=== PATIENT | male | born 1965 | race Caucasian/White ===

== ENCOUNTER 2016-09-03 14:39 | Emergency (ER) | payer MEDICAID ==
[~2016-09-03] VITALS: Ht 188 cm; Wt 92.4 kg
[~2016-09-03 14:39] MED LIST: CIPR500T87 PO; DOCU100C8 PO; METR500T PO; NEOM500T PO; ONDA4TAB10 PO; OXYC-302 PO; OXYC1TAB8 PO; TRAM50TA2 PO
[2016-09-03 15:44] LABS: BLOOD UREA NITROGEN 13 mg/dL (7-18)
[2016-09-03 15:55] LABS: IS PT STATUS REG ER OR PRE ER? YES
[2016-09-03 16:00] VITALS: BP 148/96
== END 2016-09-03 17:56 | disposition home or self-care (01) ==
LOC: ED 17:02
DX: L03.116 Cellulitis of left lower limb (principal); F17.210 Nicotine dependence, cigarettes, uncomplicated
CPT/HCPCS: 36415; 71010; 80048; 82040; 84484; 85025; 85610; 85730; 93005

== ENCOUNTER 2016-10-04 10:07 | Emergency (ER) | payer MEDICAID ==
[~2016-10-04] VITALS: Ht 188 cm; Wt 91.7 kg
[2016-10-04 10:11] VITALS: BP 141/88
== END 2016-10-04 10:38 | disposition left against medical advice (07) ==
LOC: ED 10:32
DX: M79.672 Pain in left foot (principal); Z53.21 Procedure and treatment not carried out due to patient leaving prior to being seen by health care provider

== ENCOUNTER 2016-12-23 02:46 | Emergency (ER) | payer MEDICAID ==
[~2016-12-23] VITALS: Ht 188 cm; Wt 88.6 kg
[~2016-12-23 02:46] MED LIST changes: +DOCU100C33 PO; -DOCU100C8 PO
[2016-12-23] MEDS ORDERED: HYDROmorphone 1 MG/ML, 1ML IV ONE (04:00)
[2016-12-23] MEDS ORDERED: ONDANSETRON 2MG/ML, 2ML IVPush ONE (04:00)
[2016-12-23] MEDS ORDERED: SODIUM CHLORIDE FLUSH 10ML SYR IVF ONE (04:00)
[2016-12-23] MEDS ORDERED: SODIUM CHLORIDE 0.9% 1,000ML IVBOLUS ONE (04:00)
[2016-12-23] MEDS ORDERED: HYDROmorphone 1 MG/ML, 1ML ONE (04:08)
[2016-12-23] MEDS ORDERED: ONDANSETRON 2MG/ML, 2ML ONE (04:09)
[2016-12-23 04:22] LABS: HEMATOCRIT 48.3 % (39.2-51.8); HEMOGLOBIN 16.2 g/dL (13.7-18.0); WHITE BLOOD COUNT 16.2 x10^3/uL (3.4-10)
[2016-12-23 04:30] LABS: BLOOD UREA NITROGEN 17 mg/dL (7-18)
[2016-12-23 04:33] LABS: ASPARTATE AMINO TRANSFERASE 37 U/L (15-37)
[2016-12-23] MEDS ORDERED: OMNIPAQUE 350 MG/ML, 100ML BOTTLE ONE (05:08)
[2016-12-23] MEDS ORDERED: HYDROcodone/APAP 5/325 TABLET PO ONE (06:00)
[2016-12-23] MEDS ORDERED: HYDROcodone/APAP 5/325 TABLET ONE (06:07)
[2016-12-23 06:10] VITALS: BP 142/89
== END 2016-12-23 06:51 | disposition home or self-care (01) ==
LOC: ED 04:08
DX: R10.33 Periumbilical pain (principal); R60.0 Localized edema; F17.200 Nicotine dependence, unspecified, uncomplicated; Z88.5 Allergy status to narcotic agent; Z86.14 Personal history of Methicillin resistant Staphylococcus aureus infection; Z85.038 Personal history of other malignant neoplasm of large intestine; Z90.49 Acquired absence of other specified parts of digestive tract
CPT/HCPCS: 36415; 74177; 80053; 81003; 83690; 85025; 85610; 85730; 93005; 93971; 96361; 96374; 96375; 99285; J1170; J2405; J7030; Q9967

== ENCOUNTER 2018-09-18 11:16 | Emergency (ER) | payer MEDICAID ==
[~2018-09-18] VITALS: Ht 188 cm; Wt 105.0 kg
[2018-09-18 11:28] VITALS: BP 122/81
[2018-09-18] MEDS ORDERED: LISI-167 PO (11:30)
== END 2018-09-18 11:53 | disposition home or self-care (01) ==
LOC: ED 11:38
DX: I10 Essential (primary) hypertension (principal); Z76.0 Encounter for issue of repeat prescription; Z85.038 Personal history of other malignant neoplasm of large intestine
CPT/HCPCS: 99283

== ENCOUNTER 2018-09-22 10:27 | Emergency (ER) | payer MEDICAID ==
[~2018-09-22] VITALS: Ht 188 cm; Wt 107.7 kg
[~2018-09-22 10:27] MED LIST changes: +LISI-167 PO
[2018-09-22] MEDS ORDERED: SODIUM CHLORIDE FLUSH 10ML SYR IVF ONE ×2 (11:30)
--- NOTE | 2018-09-22 12:07 | NUR ---
PT PLACED ON BP CUFF, PULSE OX, HEART MONITOR. IV PLACED, LABS DRAWN WITH START. URINAL AT BS, CALL LIGHT WITHIN REACH.
[2018-09-22 12:13] LABS: BASOPHILS # (AUTO) 0.04 x10^3/uL (0-0.1); BASOPHILS % (AUTO) 0 % (0-1); EOSINOPHILS # (AUTO) 0.09 x10^3/uL (0-0.4); EOSINOPHILS % (AUTO) 1 % (1-7); LYMPHOCYTES % (AUTO) 23 % (22-44); MD NO; MEAN CORPUSCULAR HEMOGLOBIN 29.4 pg (27.5-34.5); MEAN CORPUSCULAR HGB CONC 32.7 g/dL (33.2-36.2); MEAN CORPUSCULAR VOLUME 89.9 fL (81-97); MEAN PLATELET VOLUME 9.6 fL (7.4-10.4); MONOCYTES # (AUTO) 0.69 x10^3/uL (0.2-0.8); MONOCYTES % (AUTO) 7 % (2-9); NEUTROPHILS # (AUTO) 6.72 x10^3/uL (1.8-6.8); NEUTROPHILS % (AUTO) 69 % (42-75); PLATELET COUNT 217 x10^3/uL (130-400); RED BLOOD COUNT 4.81 x10^6/uL (4.38-5.82); RED CELL DISTRIBUTION WIDTH 14.2 % (9.4-14.8)
[2018-09-22 12:16] LABS: ALANINE AMINOTRANSFERASE 26 U/L (12-78); ALBUMIN 3.6 g/dL (3.4-5.0); ANION GAP 6 mmol/L (5-15); C-REACTIVE PROTEIN, QUANT 0.72 mg/dL (0.02-0.49); CALCIUM 8.6 mg/dL (8.5-10.1); CHLORIDE 109 mmol/L (98-107); CREATININE 0.88 mg/dL (0.7-1.3)
[2018-09-22 12:19] LABS: ALKALINE PHOSPHATASE 89 U/L (45-117); BILIRUBIN,TOTAL 0.7 mg/dL (0.2-1.0); TOTAL PROTEIN 7.2 g/dL (6.4-8.2)
[2018-09-22 12:53] LABS: HCT (SEDRATE) 43.3 % (39.2-51.8)
[2018-09-22] MEDS ORDERED: OMNIPAQUE 350 MG/ML, 100ML BOTTLE ONE (12:54)
[2018-09-22] MEDS ORDERED: OMNIPAQUE 350 MG/ML, 75ML BOTTLE ONE (12:54)
--- NOTE | 2018-09-22 13:11 | NUR ---
ALL RESULTS BACK, PT FOR RECHECK.
[2018-09-22 13:54] VITALS: BP 116/73
--- NOTE | 2018-09-22 13:54 | NUR ---
Patient/Caregiver given discharge instructions and they have confirmed that they understand the instructions. Patient ambulatory with steady gait. Addendum: 09/22/18 at 1356 by JER TASK RN.
== END 2018-09-22 13:57 | disposition home or self-care (01) ==
LOC: ED 11:30
DX: H47.091 Other disorders of optic nerve, not elsewhere classified, right eye (principal); I10 Essential (primary) hypertension; Z86.14 Personal history of Methicillin resistant Staphylococcus aureus infection; Z85.038 Personal history of other malignant neoplasm of large intestine
CPT/HCPCS: 36415; 70470; 70482; 80053; 85025; 85651; 86140; 93005; 99284; Q9967

== ENCOUNTER 2018-10-13 14:49 | Emergency (ER) | payer SELFPAY ==
[~2018-10-13] VITALS: Ht 188 cm; Wt 109.0 kg
[2018-10-13 15:00] VITALS: BP 126/82
--- NOTE | 2018-10-13 16:24 | NUR ---
PT TO ROOM FROM LOBBY.
--- NOTE | 2018-10-13 16:33 | NUR ---
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
--- NOTE | 2018-10-13 16:39 | NUR ---
ice pack given.
== END 2018-10-13 17:17 | disposition home or self-care (01) ==
LOC: ED 17:11
DX: S93.401A Sprain of unspecified ligament of right ankle, initial encounter (principal); I10 Essential (primary) hypertension; Z85.038 Personal history of other malignant neoplasm of large intestine; X50.1XXA Overexertion from prolonged static or awkward postures, initial encounter; Y93.89 Activity, other specified; Y92.410 Unspecified street and highway as the place of occurrence of the external cause; Y99.8 Other external cause status
CPT/HCPCS: 99283

== ENCOUNTER 2018-10-20 10:02 | Emergency (ER) | payer SELFPAY ==
[~2018-10-20] VITALS: Ht 188 cm; Wt 109.0 kg
[2018-10-20 10:15] VITALS: BP 134/78
[2018-10-20] MEDS ORDERED: IBUP-1623 PO (10:21)
--- NOTE | 2018-10-20 10:25 | NUR ---
Patient provided prescription in triage. Patient/Caregiver given discharge instructions and they have confirmed that they understand the instructions. Patient ambulatory with steady gait.
== END 2018-10-20 10:27 | disposition home or self-care (01) ==
LOC: ED 10:21
DX: I10 Essential (primary) hypertension (principal); Z76.0 Encounter for issue of repeat prescription
CPT/HCPCS: 99283

== ENCOUNTER 2018-12-08 08:46 | Emergency (ER) | payer SELFPAY ==
[~2018-12-08] VITALS: Ht 188 cm; Wt 109.8 kg
[~2018-12-08 08:46] MED LIST changes: +IBUP-1623 PO
[2018-12-08 08:54] VITALS: BP 137/84
--- NOTE | 2018-12-08 09:09 | NUR ---
PT AMBULATORY TO ROOM WITH STRONG STEADY GAIT. ONLY COMPLAINT IS THAT HE NEEDS A REFILL OF LISINIOPRIL. ERP AT BEDSIDE.
== END 2018-12-08 09:15 | disposition home or self-care (01) ==
LOC: ED 09:09
DX: I10 Essential (primary) hypertension (principal); Z76.0 Encounter for issue of repeat prescription
CPT/HCPCS: 99283

== ENCOUNTER 2019-02-13 00:23 | Emergency (ER) | payer OTHER ==
[2019-02-13 00:30] VITALS: BP 172/111
[2019-02-13] MEDS ORDERED: AMOXICILLIN 500 MG CAPSULE PO STA (00:55)
[2019-02-13] MEDS ORDERED: BUPIVACAINE 0.25% INFIL ONE (01:00)
[2019-02-13] MEDS ORDERED: AMOXICILLIN 500 MG CAPSULE ONE (01:03)
[2019-02-13] MEDS ORDERED: BUPIVACAINE 0.25% ONE (01:03)
[2019-02-13] MEDS ORDERED: ACETAMINOPHEN 325 MG TABLET ONE (01:15)
[2019-02-13] MEDS ORDERED: HYDROcodone/APAP 5/325 TABLET ONE (01:16)
[2019-02-13] MEDS ORDERED: ACETAMINOPHEN 325 MG TABLET PO ONE (01:30)
[2019-02-13] MEDS ORDERED: HYDROcodone/APAP 5/325 TABLET PO ONE (01:30)
--- NOTE | 2019-02-13 01:33 | NUR ---
DC EDUCATION PROVIDED, PT DEMONSTRATES UNDERSTANDING. PT AMBUALTED STEADILY TO DC WITH RN. PT TO [facility]
== END 2019-02-13 01:35 | disposition home or self-care (01) ==
LOC: ED 01:19
DX: K02.9 Dental caries, unspecified (principal); F17.210 Nicotine dependence, cigarettes, uncomplicated
CPT/HCPCS: 64400; 99284

== ENCOUNTER → 2019-03-27 | Outpatient (CLI) | payer OTHER ==
[~2019-03-27] MED LIST changes: +OMNIPAQUE 350 MG/ML, 100ML BOTTLE ONE
== END | disposition home or self-care (01) ==
LOC: CFH 09:12
PROVIDERS: ATTEND Colon & Rectal Surgery
DX: K43.9 Ventral hernia without obstruction or gangrene (principal); Z85.038 Personal history of other malignant neoplasm of large intestine
CPT/HCPCS: 74177; Q9967